=== PATIENT | male | born 1970 | race Caucasian/White ===

== ENCOUNTER → 2017-04-18 | Outpatient (CLI) | payer OTHER ==
--- NOTE | 2017-04-22 09:03 | MRI ---
MRI lumbar spine without contrast Indication: Back pain Technique: Multisequence, multiplanar MR images of the lumbar spine were obtained without IV contrast . Comparison: None Findings: Vertebral body heights, alignment and marrow signal are normal. No acute fracture, subluxat ion or suspicious osseous lesion is identified. The conus terminates normally at T12-L1. The cauda eq uina is unremarkable. The imaged paraspinal soft tissues demonstrate no gross unexpected findings. T12-L1, L1-L2, L2-L3: Unremarkable L3-L4: Mild broad-based disc bulge and facet arthropathy without significant canal or foraminal steno sis. L4-L5: Moderate broad-based disc bulge, facet arthropathy and ligamentum thickening results in modera te canal and severe lateral recess narrowing bilaterally. There is also moderate resultant right in s evere left neural foraminal stenosis. L5-S1: Mild broad-based disc bulge and facet arthropathy without significant canal or foraminal steno sis. Impression: Degenerative changes of the lumbar spine, most significant at L4-L5 as detailed above. Reported By:
== END ==
LOC: RAD 14:54
PROVIDERS: ATTEND Internal Medicine
DX: M51.17 Intervertebral disc disorders with radiculopathy, lumbosacral region (principal)
CPT/HCPCS: 72148